=== PATIENT | female | born 2000 | race Hispanic/Latino ===

== ENCOUNTER 2024-08-30 20:11 | Emergency (ER) | payer BC ==
[~2024-08-30] VITALS: Ht 167.6 cm; Wt 113.4 kg
--- NOTE | 2024-08-30 20:59 | ERN ---
General Chief Complaint: Ankle Problem Stated Complaint: ARTHRITIS Time Seen by MD: 20:15 History of Present Illness Initial Comments Patient is a 24-year-old female with psoriatic arthritis. She was controlling it with methotrexate but then stopped approximately four months ago because of side effects. Since that time she has been having increasing pain in her left ankle that has required hydrocodone Tylenol to control. She comes in today because the pain is too much. Allergies: Coded Allergies: No Known Drug Allergies (Unverified Allergy, Unknown, 11/14/23) Home Meds No Active Prescriptions or Reported Meds Past Medical History Past Medical History: Arthritis Medical History Other: PSORIATIC ARTHRITIS Past Surgical History: None Female( History) History: Not Applicable LMP: August 27, 2024 ROS Dictation Review of systems is otherwise negative. MDM I will get plain films of her left foot. Followed by a CT scan of her left foot if necessary. Based on those results, I will see if a splinting would help with her pain. Plain films of the left foot and ankle are negative. Although there is edema of it seen on the left leg. 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 I placed the patient's left foot in a walking boot she said it is more comfortable for her. She has a enough pain medications to last until her next rheumatology appointment. I discharged her from the hospital. ED Course Orders Procedure Category Date Status Time Ankle Comp 3vws Lt RAD 08/30/24 Resulted 20:59 Foot Comp 3+Vws Lt RAD 08/30/24 Resulted 20:59 Vital Signs Date Time Temp Pulse Resp B/P (MAP) Pulse Ox O2 Delivery O2 Flow Rate FiO2 08/30/24 20:30 98.4 77 20 116/82 100 Room Air DX & DISP Disposition: Discharge Departure Impression: Primary Impression: Psoriatic arthritis Condition: Stable Scripts No Active Prescriptions or Reported Meds Additional Instructions: Please follow-up with your [facility] specialist. You can also call them for a refill on your pain medications. Please come back if you have signs or symptoms of infection or actually do feel like you have a broken bone in her foot. Referrals: MATHEUS HORNER MD (PCP) SHALOM THOMAS MD August 30, 2024 20:59
--- NOTE | 2024-08-30 23:40 | HMCIMG ---
FOOT COMP 3+VWS LT HISTORY: Psoriatic arthritis COMPARISON: None TECHNIQUE: 3 images of the left foot were obtained. FINDINGS: There is no acute displaced fracture or dislocation. Soft tissue swelling is seen at the mid aspect of the left foot. IMPRESSION: 1. Findings as described above.
--- NOTE | 2024-08-30 23:41 | HMCIMG ---
ANKLE COMP 3VWS LT HISTORY: Psoriatic arthritis COMPARISON: None TECHNIQUE: 3 images of the left ankle were obtained. FINDINGS: There is no acute displaced fracture or dislocation. There is soft tissue swelling predominantly involving the medial aspect. Findings may be related to lymphedema. IMPRESSION: 1. Findings as described above.
--- NOTE | 2024-08-30 23:53 | NUR ---
ORTHOPEDIC BOOT APPLIED TO LEFT FOOT
[2024-08-31] VITALS: BP 112/65; PULSE 78; RESP 16; TEMP 97.5; O2SAT 99
== END 2024-08-31 00:13 | disposition home or self-care (01) ==
LOC: EDH 20:11
DX: L40.50 Arthropathic psoriasis, unspecified (principal)
CPT/HCPCS: 73610; 73630; 99283